=== PATIENT | female | born 2000 | race Two or more races ===

== ENCOUNTER 2023-07-01 20:45 | Emergency (ER) | payer MEDICAID, OTHER ==
[~2023-07-01] VITALS: Ht 165.1 cm; Wt 41.0 kg
[2023-07-01 20:55] VITALS: BP 136/80; PULSE 110; RESP 22; TEMP 98.5
[2023-07-01 23:00] VITALS: O2SAT 96
[2023-07-01] MEDS ORDERED: SODIUM CHLORIDE 0.9% 1,000 ML IV ONE (23:00)
[2023-07-01] MEDS ORDERED: DexAMETHasone SOD PHOS 10MG/1ML VIAL INJ IV ONE (23:00)
[2023-07-01] MEDS ORDERED: cefTRIAXone 1GM/50ML D5W 50 ML IV ONE (23:00)
[2023-07-01] MEDS ORDERED: ACET500T58 PO (23:06)
[2023-07-01] MEDS ORDERED: PRED20TA2 PO (23:06)
[2023-07-01] MEDS ORDERED: AMOX875T4 PO (23:06)
[2023-07-01 23:30] LABS: COVID19 ANTIGEN SOFIA FIA NEGATIVE (NEGATIVE); Rapid Influenza A Negative (Negative); Rapid Influenza B Negative (Negative)
== END 2023-07-02 01:09 | disposition home or self-care (01) ==
LOC: EDBD 20:45 → ER 20:45
DX: J03.90 Acute tonsillitis, unspecified (principal); Z20.822 Contact with and (suspected) exposure to COVID-19
CPT/HCPCS: 36415; 87426; 87804; 96361; 96365; 96375; 99284; J0696; J1100; J7030